=== PATIENT | female | born 1955 | race Caucasian/White ===

== ENCOUNTER 2017-02-19 06:56 | Emergency (ER) | payer OTHER ==
[2017-02-19 07:22] VITALS: TEMP 97.8; BMI 22.6
--- NOTE | 2017-02-19 07:58 | PDOC ---
History of Present Illness - General Chief Complaint: Pain Stated Complaint: PAIN,LT SIDE Time Seen by Provider: 02/19/17 07:51 - History of Present Illness Initial Comments: 02/19/17 08:13 62F with pmh of htn presents with left sided chest pain radiating to the back along the thoracic wall while on exercise bike at the gym. Continued exercising briefly afterwards.The patient is currently in no pain. No headaches or diaphoresis. Past History - Past Medical History Allergies/Adverse Reactions: Allergies Allergy/AdvReac Type Severity Reaction Status Date / Time No Known Allergies Allergy Verified 02/19/17 07:17 Home Medications: Ambulatory Orders Amlodipine Besylate/Benazepril [Lotrel 10-20 mg Capsule] 1 cap PO DAILY Aspirin [ASA -] 81 mg PO DAILY 02/19/17 Atorvastatin Ca [Lipitor] 20 mg PO DAILY 02/19/17 Cephalexin [Keflex] 500 mg PO BID #14 capsule 02/19/17 Cephalexin [Keflex] 500 mg PO BID 7 Days 02/19/17 Hydrochlorothiazide [Hctz -] 25 mg PO DAILY 02/19/17 HTN: Yes - Immunization History Immunization Up to Date: Yes - Psycho/Social/Smoking Cessation Hx Suicidal Ideation: No Smoking History: Never smoked Hx Alcohol Use: No Drug/Substance Use Hx: No Review of Systems - Review of Systems Constitutional: No: Chills, Diaphoresis, Fever, Malaise HEENTM: No: Symptoms Reported Respiratory: No: Symptoms reported Cardiac (ROS): Yes: See HPI. No: Lightheadedness, Palpitations ABD/GI: No: Symptoms Reported : No: Symptoms Reported Musculoskeletal: No: Symptoms Reported Integumentary: No: Symptoms Reported Neurological: No: Symptoms reported *Physical Exam - Vital Signs Last Vital Signs Temp Pulse Resp BP Pulse Ox 97.8 F 85 18 152/77 99 02/19/17 07:17 02/19/17 07:17 02/19/17 07:17 02/19/17 07:17 02/19/17 07:17 - Physical Exam General Appearance: Yes: Nourished, Appropriately Dressed, Apparent Distress HEENT: positive: EOMI, KRISTY, Normal ENT Inspection Neck: positive: Trachea midline. negative: Tender Respiratory/Chest: positive: Lungs Clear, Normal Breath Sounds. negative: Chest Tender Cardiovascular: positive: Regular Rhythm, Regular Rate, S1, S2 Musculoskeletal: positive: Normal Inspection ED Treatment Course - LABORATORY CBC & Chemistry Diagram: 02/19/17 08:30 02/19/17 08:30 Medical Decision Making - Medical Decision Making 02/19/17 08:48 62 with htn coming to the ed for left sided chest pain while exercising ND vs angina vs costochondritis. labs and ekg negative. UA positive for leuk esterase and blood. keflex rx d/c 02/19/17 09:50 02/19/17 10:[address] Diaz's medical record consultant physician who will let her know. Urine Cultures taken. *DC/Admit/Observation/Transfer Diagnosis at time of Disposition: UTI (urinary tract infection) - Discharge Dispostion Disposition: HOME Admit: No - Prescriptions Prescriptions: Cephalexin [Keflex] 500 mg PO BID 7 Days Cephalexin [Keflex] 500 mg PO BID #14 capsule - Referrals Referrals: Hemanth Linares MD [Primary Care Provider] - - Patient Instructions Printed Discharge Instructions: DI for Urinary Tract Infection (UTI)
[2017-02-19 08:46] LABS: EOSINOPHIL 3.2 % (0-4.5); MCH 30.7 pg (25.7-33.7); MCHC 33.9 g/dl (32.0-36.0); MEAN CELL VOLUME 90.8 fl (80-96); MEAN PLT VOLUME 7.4 fl (7.5-11.1); NEUTROPHILS 54.7 % (42.8-82.8); PLATELET COUNT 325 K/MM3 (134-434); RDW 12.5 % (11.6-15.6); WHITE BLOOD COUNT 6.8 K/mm3 (4.0-10.0)
[2017-02-19 08:47] LABS: URINE APPEARANCE CLEAR; URINE BILIRUBIN NEGATIVE (NEGATIVE); URINE BLOOD 1+ (NEGATIVE); URINE COLOR COLORLESS; URINE GLUCOSE (UA) NEGATIVE (NEGATIVE); URINE KETONE NEGATIVE (NEGATIVE); URINE NITRITE NEGATIVE (NEGATIVE); URINE PROTEIN NEGATIVE (NEGATIVE); URINE UROBILINOGEN NEGATIVE mg/dL (0.2-1.0)
[2017-02-19 08:48] LABS: URINE LEUK ESTERASE 2+ (NEGATIVE)
[2017-02-19 08:50] LABS: URINE HYALINE CAST 1 /lpf; URINE RBC 1 /hpf (0-3); URINE WBC 9 /hpf (3-5)
[2017-02-19 09:15] LABS: ALBUMIN 4.6 g/dl (3.4-5.0); ANION GAP 8 (8-16); BILIRUBIN,TOTAL 0.5 mg/dL (0.2-1.0); CALCIUM 9.9 mg/dL (8.5-10.1); CO2 30 mmol/L (21-32); CREATININE 0.7 mg/dL (0.55-1.02); GLUCOSE,RANDOM 93 mg/dL (74-106); SGOT/AST 14 U/L (15-37); SGPT/ALT 21 U/L (12-78); TOT PROT 8.2 g/dl (6.4-8.2)
[2017-02-19 09:17] LABS: ALK PHOS 90 U/L (45-117); CPK 99 IU/L (26-192); TROPONIN I < 0.02 ng/ml (0.00-0.05)
--- NOTE | 2017-02-19 09:31 | PDOC ---
Attending Attestation - Resident Resident Name: Cleveland Delgado - ED Attending Attestation I have performed the following: I have examined & evaluated the patient, The case was reviewed & discussed with the resident, I agree w/resident's findings & plan, Exceptions are as noted - HPI HPI: 02/19/17 09:23 This pt is an otherwise healthy 62 yo F presenting to the ER with a complaint of left chest pain Pt routinely uses a recumbent exercise bike Was on it this morning at 6:15 She states that she had an episode of left sided chest pain just beneath the breast which radiated to her back No prior episodes like this No nausea, diaphoresis, vomiting, Typically, she does not have exertional chest pain Symptoms lasted several minutes and then resolved 02/19/17 09:31 - Physicial Exam PE: 02/19/17 09:52 RRR CTA B/L No chest wall tenderness No abd tenderness to palpation - Medical Decision Making 02/19/17 09:52 A/P: 62 yo F presenting to the ER with left chest pain Will do labs, EKG, Chest x ray Will re assess Laboratory Tests 02/19/17 02/19/17 02/19/17 08:30 08:30 08:30 WBC 6.8 Hgb 14.2 Hct 41.8 Plt Count 325 BUN 13 Creatinine 0.7 Creatine Kinase 99 Troponin I < 0.02 Urine Blood 1+ H Urine Nitrite Negative Ur Leukocyte Esterase 2+ H Urine RBC 1 Urine WBC 9 Will discharge to home Pt PMD called Pt to follow up with PMD Given copies of her labs tests Return precautions given
[2017-02-19] MEDS ORDERED: CEPHALEXIN MONOHYDRATE 500 MG CAPSULE (UD) PO ONE (09:48)
[2017-02-19] MEDS ORDERED: CEPHALEXIN MONOHYDRATE 250 MG CAPSULE (FP) ONE (10:07)
[2017-02-19 10:25] VITALS: BP 148/77; PULSE 81
--- NOTE | 2017-02-19 10:52 | EKG ---
Test Reason : Blood Pressure : / mmHG Vent. Rate : 074 BPM Atrial Rate : 074 BPM P-R Int : 164 ms QRS Dur : 086 ms QT Int : 396 ms P-R-T Axes : 057 035 066 degrees QTc Int : 439 ms NORMAL SINUS RHYTHM NONSPECIFIC ST ABNORMALITY ABNORMAL ECG WHEN COMPARED WITH ECG OF 26-JAN-1998 08:31, NO SIGNIFICANT CHANGE WAS FOUND Confirmed by HECTOR RICARDO MD ([id number]) on 02/19/2017 10:52:14 AM Referred By: Confirmed By:HECTOR RICARDO MD
== END 2017-02-19 10:24 | disposition home or self-care (01) ==
LOC: JER 06:56
DX: N39.0 Urinary tract infection, site not specified (principal); X50.3XXA Overexertion from repetitive movements, initial encounter; Y93.B1 Activity, exercise machines primarily for muscle strengthening; Y92.39 Other specified sports and athletic area as the place of occurrence of the external cause; Y99.8 Other external cause status
CPT/HCPCS: 36415; 80053; 81003; 81015; 84484; 85025; 87086; 93005; 93010; 99282-25

== ENCOUNTER 2017-08-14 07:00 | Day surgery (SDC) | payer OTHER ==
[2017-08-13 09:56] VITALS: BMI 22.8
[2017-08-14] MEDS ORDERED: PROPOFOL 20 ML ONE ×4 (07:57)
[2017-08-14] MEDS ORDERED: LIDOCAINE HCL/PF 2% SDV 5ML VIAL ONE (07:57)
[2017-08-14 08:48] VITALS: TEMP 97.7
[2017-08-14 09:42] VITALS: BP 130/74; PULSE 66
--- NOTE | 2017-08-19 18:14 | PATH ---
Surgical Pathology Report Patient Name: SHAHBAZ LOMBARDO [facility]. Rec. #: [id number] /Age/Gender: 1955 (Age: 62) / F Account: [id number] Location: [facility]-ENDOSCOPY Taken: 08/14/2017 Received: 08/14/2017 Reported: 08/19/2017 Physicians: Kalen Pearl M.D. Specimen(s) Received A: BX DUODENUM B: BX GASTRIC ANTRUM C: BX ANTRUM D: BX GE JUNCTION E: BX MID-ESOPHAGUS Clinical History Preoperative diagnosis: Acid reflux, colon cancer screening Postoperative diagnosis: GERD, gastritis, gastric polyp, mild diverticulosis Final Diagnosis A. DUODENUM, SECOND PORTION/BULB, BIOPSY: DUODENAL MUCOSA WITH ACUTE AND CHRONIC DUODENITIS. B. STOMACH, FUNDUS, POLYP, BIOPSY: POLYPOID GASTRIC OXYNTIC MUCOSA WITH MILD CHRONIC INFLAMMATION. IMMUNOHISTOCHEMICAL STAIN FOR H. PYLORI IS NEGATIVE. C. STOMACH, ANTRUM, BIOPSY: GASTRIC ANTRAL MUCOSA WITH MILD CHRONIC GASTRITIS. IMMUNOHISTOCHEMICAL STAIN FOR H. PYLORI IS NEGATIVE. D. GASTROESOPHAGEAL (GE) JUNCTION/DISTAL ESOPHAGUS, BIOPSY: SQUAMOCOLUMNAR MUCOSA WITH MODERATE CHRONIC INFLAMMATION AND CHANGES OF MILD TO MODERATE REFLUX ESOPHAGITIS. NO INTESTINAL METAPLASIA OR DYSPLASIA IDENTIFIED. E. MID ESOPHAGUS BIOPSY: SQUAMOUS MUCOSA WITH VASCULAR CONGESTION AND MILD REFLUX CHANGES. Electronically Signed Evangelina José M.D. Gross Description A. Received in formalin, labeled "biopsy second portion of duodenum/bulb" are 3 velasquez, irregular portions of soft tissue ranging from 0.3-0.5 cm. in greatest dimension. The specimens are submitted in toto in one cassette. B. Received in formalin, labeled "biopsy gastric fundus polyp" is a velasquez, irregular portion of soft tissue measuring 0.2 cm. in greatest dimension. The specimen is submitted in toto in one cassette. C. Received in formalin, labeled "biopsy antrum" are 2 velasquez, irregular portions of soft tissue averaging 0.3 cm. in greatest dimension. The specimens are submitted in toto in one cassette. D. Received in formalin, labeled "biopsy GE junction/distal esophagus" are 3 velasquez, irregular portions of soft tissue averaging 0.3 cm. in greatest dimension. The specimens are submitted in toto in one cassette. E. Received in formalin, labeled "biopsy midesophagus" is a velasquez, irregular portion of soft tissue measuring 0.5 cm. in greatest dimension. The specimen is submitted in toto in one cassette. 08/14/2017 [facility]08/14/2017
== END 2017-08-14 09:44 | disposition home or self-care (01) ==
LOC: JASU-ENDO 07:00
PROVIDERS: ATTEND Internal Medicine Gastroenterology
PROC: 0DB68ZX Excision of Stomach, Via Natural or Artificial Opening Endoscopic, Diagnostic (ICD-10-PCS; 2017-08-14)
PROC: 0DB38ZX Excision of Lower Esophagus, Via Natural or Artificial Opening Endoscopic, Diagnostic (ICD-10-PCS; 2017-08-14)
PROC: 0DJD8ZZ Inspection of Lower Intestinal Tract, Via Natural or Artificial Opening Endoscopic (ICD-10-PCS; 2017-08-14)
PROC: 0DB98ZX Excision of Duodenum, Via Natural or Artificial Opening Endoscopic, Diagnostic (ICD-10-PCS; principal; 2017-08-14 08:00)
DX: Z12.11 Encounter for screening for malignant neoplasm of colon (principal); K57.30 Diverticulosis of large intestine without perforation or abscess without bleeding; K64.8 Other hemorrhoids; K21.0 Gastro-esophageal reflux disease with esophagitis; K22.10 Ulcer of esophagus without bleeding; K25.9 Gastric ulcer, unspecified as acute or chronic, without hemorrhage or perforation; K31.7 Polyp of stomach and duodenum
CPT/HCPCS: 43239; G0121; 88305-TC; 88342-TC

== ENCOUNTER 2021-05-10 04:39 | Day surgery (SDC) | payer OTHER ==
[2021-05-08 15:05] VITALS: BMI 22.8
[2021-05-10 08:56] VITALS: TEMP 97.1
[2021-05-10 09:55] VITALS: BP 133/69; PULSE 71
== END 2021-05-10 10:05 | disposition home or self-care (01) ==
LOC: JASU-ENDO 04:39
PROVIDERS: ATTEND Internal Medicine Gastroenterology
PROC: 0DB38ZX Excision of Lower Esophagus, Via Natural or Artificial Opening Endoscopic, Diagnostic (ICD-10-PCS; 2021-05-10)
PROC: 0DB78ZX Excision of Stomach, Pylorus, Via Natural or Artificial Opening Endoscopic, Diagnostic (ICD-10-PCS; 2021-05-10)
PROC: 0DB28ZX Excision of Middle Esophagus, Via Natural or Artificial Opening Endoscopic, Diagnostic (ICD-10-PCS; 2021-05-10)
PROC: 0DBP8ZX Excision of Rectum, Via Natural or Artificial Opening Endoscopic, Diagnostic (ICD-10-PCS; principal; 2021-05-10 08:05)
DX: Z12.11 Encounter for screening for malignant neoplasm of colon (principal); D12.8 Benign neoplasm of rectum; K44.9 Diaphragmatic hernia without obstruction or gangrene; K21.00 Gastro-esophageal reflux disease with esophagitis, without bleeding; K29.50 Unspecified chronic gastritis without bleeding; I10 Essential (primary) hypertension
CPT/HCPCS: 88305-TC; 88312-TC; 88342-TC

== ENCOUNTER 2022-01-20 11:11 | Day surgery (SDC) | payer OTHER ==
[2022-01-20] MEDS ORDERED: FERRIC CARBOXYMALTOSE 750 MG in SODIUM CHLORIDE 250 ML IVPB ONE (12:00)
[2022-01-20 12:32] VITALS: BP 140/63; PULSE 86; RESP 20; TEMP 98.1
== END 2022-01-20 12:46 | disposition home or self-care (01) ==
LOC: FINFUSION 11:11 → FM/S 11:13 → FINFUSION 12:46
PROVIDERS: ATTEND Family Medicine
PROC: 3E033GC Introduction of Other Therapeutic Substance into Peripheral Vein, Percutaneous Approach (ICD-10-PCS; principal; 2022-01-20)
DX: D50.9 Iron deficiency anemia, unspecified (principal)
CPT/HCPCS: 96365; J1439

== ENCOUNTER 2022-01-27 11:02 | Day surgery (SDC) | payer OTHER ==
[2022-01-27] MEDS ORDERED: FERRIC CARBOXYMALTOSE 750 MG in SODIUM CHLORIDE 250 ML IVPB ONE (11:30)
[2022-01-27 12:16] VITALS: BP 127/60; PULSE 73; RESP 18; TEMP 98
== END 2022-01-27 12:35 | disposition home or self-care (01) ==
LOC: FINFUSION 11:02 → FM/S 11:02 → FINFUSION 12:35
PROVIDERS: ATTEND Family Medicine
PROC: 3E033GC Introduction of Other Therapeutic Substance into Peripheral Vein, Percutaneous Approach (ICD-10-PCS; principal; 2022-01-27)
DX: D50.9 Iron deficiency anemia, unspecified (principal)
CPT/HCPCS: 96365; J1439